=== PATIENT | female | born 1980 | race Caucasian/White ===

== ENCOUNTER 2016-11-02 03:08 | Emergency (ER) | payer SELFPAY ==
[2016-11-02 03:29] VITALS: TEMP 97.9; O2SAT 99
--- NOTE | 2016-11-02 03:31 | C.PDOC ---
History Of Present Illness 36 y/o female presents to the ED for with multiple complaints. Patient's main complaint this evening seems to be left-sided anterior chest pain which began yesterday and has been continuous ever since. Patient describes her pain as a burning sensation which she also felt in her back earlier tonight. Patient has no exacerbating or relieving factors. She denies any medical history, social history history of smoking or familial history of NV. Time Seen by Provider: 11/02/16 03:15 Chief Complaint (Nursing): Chest Pain History Per: Patient History/Exam Limitations: no limitations Onset/Duration Of Symptoms: Hrs Current Symptoms Are (Timing): Still Present Quality: Burning, "Pain" Exacerbating Factors: None Alleviating Factors: None Additional History Per: Patient Past Medical History Reviewed: Historical Data, Nursing Documentation, Vital Signs Vital Signs: Last Vital Signs Temp 97.9 F 11/02/16 03:20 Pulse 75 11/02/16 03:20 Resp 20 11/02/16 03:20 BP 104/78 11/02/16 03:20 Pulse Ox 99 11/02/16 05:14 - Medical History PMH: No Chronic Diseases Surgical History: No Surg Hx Family History: Denies: NV - Social History Hx Tobacco Use: No Hx Alcohol Use: No Hx Substance Use: No - Immunization History Hx Tetanus Toxoid Vaccination: Yes Hx Influenza Vaccination: No Hx Pneumococcal Vaccination: No Review Of Systems Constitutional: Negative for: Fever, Chills Cardiovascular: Positive for: Chest Pain. Negative for: Palpitations Respiratory: Negative for: Cough, Shortness of Breath Gastrointestinal: Negative for: Nausea, Vomiting, Abdominal Pain, Diarrhea Musculoskeletal: Positive for: Back Pain Neurological: Negative for: Weakness, Numbness Physical Exam - Physical Exam Appears: Non-toxic, No Acute Distress Skin: Normal Color, Warm, Dry Head: Atraumatic, Normacephalic Eye(s): bilateral: Normal Inspection Oral Mucosa: Moist Neck: Supple Chest: Symmetrical, No Deformity, Tenderness (reproducible pain w palp over sternum) Cardiovascular: Rhythm Regular, No Murmur Respiratory: Normal Breath Sounds, No Rales, No Rhonchi, No Wheezing Extremity: Normal ROM, Capillary Refill (less than 2 seconds ) Neurological/Psych: Oriented x3, Normal Speech, Normal Cognition Gait: Steady ED Course And Treatment - Laboratory Results Result Diagrams: 11/02/16 04:02 11/02/16 04:02 O2 Sat by Pulse Oximetry: 99 (on RA) Pulse Ox Interpretation: Normal Progress Note: labs, EKG, and CXR ordered and reviewed. Medical Decision Making Medical Decision Making: EKG: Ordered, reviewed, and independently interpreted the EKG. Rate: 62 BPM Rhythm: Normal Sinus Rhythm Interpretation: No ST-segment elevations or depressions, no T-wave inversions, normal intervals. CXR Impression: No acute findings. PERC negative HEART low risk 510am pt sleeping, upon waking I disc results w her and s/o. follow up and return precautions advised. Disposition - Disposition Referrals: [facility] [Outside] Marvin Cruz MD [Staff Provider] - Disposition: HOME/ ROUTINE Disposition Time: 05:13 Condition: GOOD Additional Instructions: Please follow up with a primary doctor in the next week- either the clinic, Dr Cruz, or a doctor of your choosing. Return to the ER for any worsening symptoms or for any other concerns. Instructions: Chest Pain (ED) Forms: [facility] (Algerian), General Discharge Instructions - Clinical Impression Clinical Impression: Chest pain - Scribe Statement The provider has reviewed the documentation as recorded by the Scribe (Lula Phipps) Provider Attestation: All medical record entries made by the Scribe were at my direction and personally dictated by me. I have reviewed the chart and agree that the record accurately reflects my personal performance of the history, physical exam, medical decision making, and the department course for this patient. I have also personally directed, reviewed, and agree with the discharge instructions and disposition.
[2016-11-02 04:04] LABS: BASO # 0.1 K/uL (0.0-0.2); BASO % 0.9 % (0.0-2.0); EOS % 10.3 % (0.0-4.0); HEMATOCRIT 37.4 % (34.0-47.0); LYMPH # 3.5 K/uL (1.0-4.3); LYMPH % 37.4 % (20.0-40.0); MEAN CELL VOLUME 82.3 fL (81.0-99.0); MEAN CORPUSCULAR HEMOGLOBIN 26.9 pg (27.0-31.0); MEAN CORPUSCULAR HGB CONC 32.7 g/dL (33.0-37.0); MEAN PLATELET VOLUME 7.3 fL (7.2-11.7); MONO # 0.6 K/uL (0.0-0.8); MONO % 6.2 % (0.0-10.0); RED CELL DISTRIBUTION WIDTH 14.5 % (11.5-14.5); WHITE BLOOD COUNT 9.3 K/uL (4.8-10.8)
[2016-11-02 04:18] LABS: ALB/GLOB RATIO 1.5 (1.0-2.1); ALKALINE PHOSPHATASE 83 U/L (38-126); ALT/SGPT 47 U/L (9-52); AST/SGOT 28 U/L (14-36); BILIRUBIN,TOTAL 0.3 mg/dL (0.2-1.3); BLOOD UREA NITROGEN 20 mg/dL (7-17); CALCIUM 9.1 mg/dl (8.6-10.4); CARBON DIOXIDE 24 mmol/L (22-30); CHLORIDE 100 mmol/L (98-107); GFR AFRICAN-AMERICAN > 60; GLUCOSE,RANDOM 78 mg/dL (65-105); POTASSIUM 3.8 mmol/L (3.6-5.2); SODIUM 139 mmol/L (132-148); TOTAL PROTEIN 6.8 g/dL (6.3-8.3)
[2016-11-02 05:22] VITALS: BP 101/65; PULSE 66; RESP 18
--- NOTE | 2016-11-02 07:23 | RAD ---
HISTORY: cp COMPARISON: No prior. FINDINGS: LUNGS: No active pulmonary disease. PLEURA: No significant pleural effusion identified, no pneumothorax apparent. CARDIOVASCULAR: Normal. OSSEOUS STRUCTURES: No significant abnormalities. VISUALIZED UPPER ABDOMEN: Normal. OTHER FINDINGS: None. IMPRESSION: No acute cardiopulmonary disease is appreciable.
--- NOTE | 2016-11-04 20:42 | CARD ---
APPROVED REPORT EKG Measurement Heart [id number] <Conclusion> Normal sinus rhythm Normal ECG
== END 2016-11-02 05:24 | disposition home or self-care (01) ==
LOC: C.ER 03:08 → SUPCPDRO 03:08 → C.ER 05:24
DX: R07.9 Chest pain, unspecified (principal)